=== PATIENT | male | born 1980 | race Caucasian/White ===

== ENCOUNTER 2020-07-09 15:36 | Emergency (ER) | payer OTHER, SELFPAY ==
[2020-07-09 15:48] VITALS: BP 124/73; PULSE 73; RESP 20; TEMP 36.6; O2SAT 100
--- NOTE | 2020-07-09 15:56 | ED.SKABFB ---
HPI - Skin/Abscess/Foreign Bdy General Chief complaint: Skin/Abscess/Foreign Body Stated complaint: Hives Source: patient Mode of arrival: ambulatory Limitations: no limitations History of Present Illness HPI narrative: Patient is a 39-year-old male who presents complaining of intermittent hives for the past 2 weeks. He denies changes of soap, detergent or lotions. He denies taking any new medications or eating any new foods in this period of time. He reports taking Benadryl with limited relief, he also reports taking Pepcid. He denies pain but reports itching and irritation. He reports having similar episodes in the past that have been aided by use of steroids. Patient requesting corticosteroids for treatment at this time. MD complaint: rash Related Data Home Medications Medication Instructions Recorded Confirmed Daily Multivitamin 09/22/19 Allergies Allergy/AdvReac Type Severity Reaction Status Date / Time No Known Allergies Allergy Unverified 04/14/18 08:22 Review of Systems Review of Systems: Narrative: CONSTITUTIONAL: Denies fever, chills, or sweats. EYES: Denies visual changes, redness, or discharge. ENT: Denies rhinorrhea, congestion, sore throat, or otalgia. CARDIOVASCULAR: Denies chest pain, palpitations, or edema. RESPIRATORY: Denies cough or dyspnea. GASTROINTESTINAL: Denies abdominal pain, nausea, vomiting, or diarrhea. GENITOURINARY: Denies dysuria or hematuria. SKIN: Reports intermittent hives over the past 2-3 weeks MUSCULOSKELETAL: Denies back pain, joint pain, or myalgia. NEUROLOGIC: Denies headache, numbness, dizziness, or weakness. PSYCHIATRIC: Denies anxiety or depression. [facility]LY [facility] Social History Social History (Updated 07/09/20 @ 16:01 by DIANA Crawley) Smoking status: Never smoker Alcohol intake: never Substance use: never Living arrangements: with family Occupation/Education: occupation Gender identity (if verbalized by the patient): Male Exam Narrative: Exam Narrative: GENERAL: Well-appearing, well-nourished, and in no acute distress. HEAD: Normocephalic, atraumatic. EYES: EOMI. No redness or drainage. ENT: Mucous membranes pink and moist. CHEST: No respiratory distress. Clear to auscultation. HEART: Regular rate and rhythm. No murmur appreciated. Normal peripheral pulses. EXTREMITIES: Normal range of motion. No edema. SKIN:Warm and dry, multiple raised erythematous wheals noted on back and abdomen NEURO: No focal deficits. Alert and oriented x3. Gait steady. PSYCH: Normal affect. No signs of depression or anxiety. Course Vital Signs Vital signs: Vital Signs Temperature 36.6 C 07/09/20 15:48 Pulse Rate 73 07/09/20 15:48 Respiratory Rate 20 07/09/20 15:48 Blood Pressure 124/73 07/09/20 15:48 Pulse Oximetry 100 07/09/20 15:48 Temperature 36.6 C 07/09/20 15:48 Pulse Rate 73 07/09/20 15:48 Respiratory Rate 07/09/20 15:48 Blood Pressure 124/73 07/09/20 15:48 Pulse Oximetry 100 07/09/20 15:48 Reviewed MDM - Skin/Abscess/Foreign Bdy MDM Narrative Medical decision making narrative: Patient has unknown source of urticaria, discussed using Benadryl and famotidine, which patient reports using at home. Patient to be started on corticosteroids at this time. Patient encouraged to see supervisor cytogenetic laboratory in the future. Patient is stable for discharge to home with outpatient follow-up as needed. Critical Care Time Critical Care Time Critical Care Time: No Discharge Plan Discharge Clinical Impression: Urticaria Patient Disposition: Home, Self-Care Condition: Stable Additional Instructions: Continue taking Benadryl as needed. Start taking prednisone in the a.m. Follow-up with dermatology as needed. Prescriptions: New prednisone 20 mg tablet 40 mg PO DAILY 5 Days Qty: 10 RF: 0 No Action Daily Multivitamin RF: 0 Follow-up/Referrals: Cody,Krishan Wiggins MD [Primary Care Provider] -
== END 2020-07-09 16:10 | disposition home or self-care (01) ==
PROVIDERS: Emergency Provider Nurse Practitioner; PCP Internal Medicine
DX: L50.9 Urticaria, unspecified (principal)
CPT/HCPCS: 99213; G0463

== ENCOUNTER 2020-09-20 12:35 | Emergency (ER) | payer OTHER, SELFPAY ==
[2020-09-20 12:40] VITALS: BP 140/82; PULSE 80; RESP 16; TEMP 36.7; O2SAT 100
--- NOTE | 2020-09-20 12:55 | ED.GENADULT ---
HPI - General Adult General Chief complaint: Skin/Abscess/Foreign Body Stated complaint: rash Time Seen by Provider: 09/20/20 12:55 Source: patient and RN notes reviewed Mode of arrival: ambulatory Limitations: no limitations History of Present Illness HPI narrative: 40-year-old male presents with complaints of intermittent diffused, itching, red, hives to abdomen and groin for the past 7 days. Reji reports a history of similar episodes since 2004, last being July 2020. Pepcid and Benadryl (last on 09/19/20 at bedtime) with relief, hives return within 24 hours or less. Unknown irritation. Denies new changes in personal hygiene products or laundry detergent. No new foods or medications. No swelling, burning, bleeding, or drainage. Denies fever, chills, headaches, weakness, fatigue, myalgia, facial swelling, or tongue swelling. Denies chest pain or dyspnea. Tolerating po intake well. The patient reports he have not been diagnosed with COVID-19. The patient reports he is not waiting for the results of a COVID-19 lab test. Reji reports being tested on September 17, 2020 with a NEGATIVE result. The patient reports he do not have a new or worsening cough or shortness of breath. The patient reports he do not have any rhinorrhea, congestion, loss of taste, sore throat, nausea, vomiting, abdominal pain, and diarrhea. Denies recent traveling. Denies concerns for COVID-19 or exposures been home with limited outdoor exposure except for essential household needs, work, and return home. At this time, patient is not suspected of having COVID-19. Some parts of this dictation were generated by voice recognition software and may contain typographical and/or grammatical inaccuracies. Related Data Home Medications Medication Instructions Recorded Confirmed Daily Multivitamin 1 tab-cap PO DAILY 09/22/19 09/20/20 Allergies Allergy/AdvReac Type Severity Reaction Status Date / Time No Known Allergies Allergy Verified 09/20/20 12:46 Review of Systems Review of Systems: Narrative: CONSTITUTIONAL: Denies fever, chills, sweats. EYES: Denies visual changes, redness, discharge. ENT: Denies rhinorrhea, congestion, sore throat, otalgia. CARDIOVASCULAR: Denies chest pain, palpitations, edema. RESPIRATORY: Denies dyspnea, wheezing, cough. GASTROINTESTINAL: Denies abdominal pain, nausea, vomiting, diarrhea. GENITOURINARY: Denies dysuria, hematuria, abnormal discharge SKIN: Complains of intermittent diffused itching, red, hives to abdomen and groin. Denies drainage. MUSCULOSKELETAL: Denies acute back pain, joint pain, or myalgia. NEUROLOGIC: Denies numbness or focal weakness. PSYCHIATRIC: Denies anxiety or depression. All other systems reviewed & are unremarkable except as noted in HPI and below. [facility] Past Medical History Medical History (Updated 09/20/20 @ 13:10 by DIANA Campos) Elbow fracture, left Hernia Left inguinal Surgical History Surgical History (Updated 09/20/20 @ 13:06 by DIANA Campos) History of elbow surgery Left ORIF History of hernia surgery Left inguinal hernia repair History of nasal septoplasty Family History Family History (Updated 09/20/20 @ 13:08 by DIANA Campos) Father Chronic pain Mother Hypertension Social History Social History (Updated 09/20/20 @ 13:09 by DIANA Campos) Smoking status: Never smoker Tobacco type: cigarettes Second hand tobacco smoke exposure: No Alcohol intake: never Substance use: never Living arrangements: with family Additional living arrangements comments: Spouse and kids Occupation/Education: occupation Gender identity (if verbalized by the patient): Male Sexual Orientation (if Verbalized by the Patient): Straight or Heterosexual Comments At time of signature, agree with nurse past medical, surgical, social, and family history. There is relevant patient's past medical history pertinent to the
== END 2020-09-20 13:19 | disposition home or self-care (01) ==
PROVIDERS: Emergency Provider Nurse Practitioner Family; PCP Internal Medicine
DX: L50.9 Urticaria, unspecified (principal)
CPT/HCPCS: 99213; G0463

== ENCOUNTER 2022-01-12 17:27 | Inpatient (IN) | payer OTHER, SELFPAY ==
--- NOTE | ~2022-01-12 | XR_ITS ---
EXAMINATION: XR abdomen/kub 1V DATE: 01/16/2022 05:24 INDICATION: Small bowel obstruction TECHNIQUE: A supine view of the abdomen on 2 radiographs was obtained. COMPARISON: 01/15/2022 FINDINGS: Persistent mildly dilated loop of a gas-filled small bowel in the left abdomen. Minimal amount of gas scattered throughout the colon and within a few partially decompressed loops of small bowel in the r ight abdomen. No pneumatosis. IMPRESSION: 1. Persistent mildly dilated loop of small bowel in the left abdomen most likely postoperative ileus with differential including partial small bowel obstruction. Reviewed, dictated and finalized at location A. IMPRESSION: 1. Persistent mildly dilated loop of small bowel in the left abdomen most likel y postoperative ileus with differential including partial small bowel obstructi on.
--- NOTE | ~2022-01-12 | XR_ITS ---
EXAMINATION: XR abdomen/kub 1V DATE: 01/14/2022 11:45 INDICATION: Nausea. Abdominal distention. TECHNIQUE: A supine view of the abdomen on 2 radiographs was obtained. COMPARISON: CT abdomen and pelvis 01/12/2022 FINDINGS: There are multiple dilated loops of small bowel. The colon is decompressed. IMPRESSION: 1. Dilated small bowel, most likely adynamic ileus. Reviewed, dictated and finalized at location A. N SAW MECHANIC
--- NOTE | ~2022-01-12 | CT_ITS ---
EXAMINATION: CT abdomen pelvis w con DATE: 01/12/2022 18:59 INDICATION: Diffuse abdominal pain TECHNIQUE: Computed tomography (CT) of the abdomen and pelvis was performed with 100 mL Omnipaque-350 intravenous contrast. Automated exposure control and iterative reconstruction technique were employe d. The dose-length product was 690.48 mGy-cm. COMPARISON: None FINDINGS: Lung bases are clear. Heart size is normal. No pericardial or pleural effusion. Diffuse hepatic steat osis with focal sparing along the gallbladder fossa. Gallbladder, spleen, pancreas, bilateral adrenal glands and left kidney are normal. 1.4 similar cyst at the lower pole of the right kidney. Prominent inflammatory stranding surrounding the dilated fluid-filled appendix which measures up to 1.6 simila r in diameter with obstructing appendicolith at the base of the appendix. Many of the bowels are unre markable. Bladder is normal. No abscess or free intraperitoneal gas or fluid. No pathologically enlar ged abdominal or pelvic lymphadenopathy. Straightening of the thoracic and lumbar spine. Moderate dis c height loss with mild degenerative endplate changes at L5-S1. Bone island at the right femoral head . IMPRESSION: 1. Acute appendicitis. Dr. Rouse discussed these findings with Dr. Hastings at 7:02 PM. Reviewed, dictated and finalized at location A. S PULLER IMPRESSION: 1. Acute appendicitis. Dr. Rouse discussed these findings with Dr. Venkata urena t 7:02 PM.
--- NOTE | ~2022-01-12 | XR_ITS ---
EXAMINATION: XR abdomen/kub 1V DATE: 01/15/2022 05:30 INDICATION: Small bowel obstruction. TECHNIQUE: A supine view of the abdomen on 2 radiographs was obtained. COMPARISON: CT abdomen and pelvis 01/12/2022, abdomen radiographs 01/14/2022 FINDINGS: There are multiple dilated loops of small bowel. The colon is compressed. IMPRESSION: 1. Persistently dilated small bowel, most likely adynamic ileus. Reviewed, dictated and finalized at location A.
[2022-01-12 17:37] VITALS: BP 134/76; PULSE 102; RESP 18; TEMP 37.1; O2SAT 98
--- NOTE | 2022-01-12 18:01 | ED.ABDPAIN ---
HPI - Abdominal Pain General Chief Complaint: Abdominal Pain Stated Complaint: abdominal pain Time Seen by Provider: 01/12/22 17:49 Source: patient Mode of arrival: ambulatory Limitations: no limitations History of Present Illness HPI narrative: Patient is a 41-year-old male complaining of abdominal pain, diffuse, 8 out of 10, sharp, nonradiating accompanied by nausea and subjective fever started yesterday. Patient states that he had 2 bouts of loose watery stools nonbloody today. Patient denies any chest pain, shortness of breath, vomiting, or urinary symptoms. Related Data Home Medications Medication Instructions Recorded Confirmed Daily Multivitamin 1 tab-cap PO DAILY 09/22/19 09/20/20 Allergies Allergy/AdvReac Type Severity Reaction Status Date / Time No Known Allergies Allergy Verified 01/12/22 17:56 Review of Systems Review of Systems: All systems reviewed & are unremarkable except as noted in HPI and below Constitutional: Constitutional: Denies body ache(s), Denies chills, Denies excessive sweating, Denies fatigue, Denies headache(s), Denies lethargy, Denies malaise, Denies weakness and Denies weight loss Eyes: Eyes: Denies blurry vision, Denies change in vision and Denies loss of vision ENT: Denies dizziness, Denies ear discharge, Denies headache(s), Denies lip swelling, Denies epistaxis, Denies nasal congestion, Denies neck pain, Denies throat swelling and Denies tongue swelling Cardiovascular: Cardiovascular: Denies chest pain, Denies chest pain at rest, Denies chest pain with activity, Denies diaphoresis, Denies rapid heart rate, Denies edema, Denies irregular heart rhythm, Denies lightheadedness, Denies palpitations, Denies dyspnea and Denies dyspnea on exertion Respiratory: Respiratory: Denies chest congestion, Denies cough, Denies hemoptysis, Denies dyspnea and Denies dyspnea on exertion Gastrointestinal: Gastrointestinal: Denies melena, Denies hematochezia, Denies diarrhea, Denies vomiting and Denies hematemesis Musculoskeletal: Musculoskeletal: Denies abnormal gait, Denies deformity, Denies joint swelling, Denies limited range of motion, Denies neck pain and Denies numbness Neurologic: Denies Abnormal speech present, Denies abnormal gait, Denies confusion, Denies dizziness, Denies headache(s), Denies focal weakness, Denies loss of vision, Denies numbness, Denies Other visual disturbances, Denies Sensory deficit (Neuro) and Denies weakness Psychiatric: Psychiatric: Denies confusion, Denies depression, Denies auditory hallucinations, Denies homicidal ideation and Denies suicidal ideation Endocrine: Endocrine: Denies cold intolerance, Denies excessive sweating, Denies fatigue, Denies heat intolerance and Denies palpitations Hematologic/Lymphatic: Hematologic/Lymphatic: Denies easy bleeding and Denies easy bruising Allergic/Immunologic: Allergic/Immunologic: Denies lip swelling, Denies throat swelling and Denies tongue swelling PMFSH Past Medical History Medical History Elbow fracture, left Hernia Left inguinal Surgical History Surgical History History of elbow surgery Left ORIF History of hernia surgery Left inguinal hernia repair History of nasal septoplasty Family History Family History Father Chronic pain Mother Hypertension Social History Social History Smoking status: Never smoker Tobacco type: cigarettes Second hand tobacco smoke exposure: No Alcohol intake: never Substance use: never Additional living arrangements comments: Spouse and kids Gender identity (if verbalized by the patient): Male Sexual Orientation (if Verbalized by the Patient): Straight or Heterosexual Exam Const: General: cooperative, healthy appearing, comfortable, no ac
[2022-01-12] MEDS: MORPHINE SULFATE (*CRX) 2 MG/ML INJ (18:31)
[2022-01-12] MEDS: ONDANSETRON INJ 4 MG/2 ML VIAL (18:31)
[2022-01-12 18:38] LABS: Alanine Aminotransferase 94 U/L (4-50); Albumin Level 5.2 g/dL (3.5-5.1); Alkaline Phosphatase 70 U/L (38-126); Anion Gap 13 mmol/L (8-16); Aspartate Amino Transferase 43 U/L (17-59); Bilirubin,Total 1.5 mg/dL (0.2-1.3); Blood Urea Nitrogen 10 mg/dL (9-20); Calcium 9.9 mg/dL (8.4-10.2); Carbon Dioxide 27 mmol/L (22-30); Chloride 97 mmol/L (98-107); Estimated CRCL calculation 79 ml/min; Estimated Glomerular Filt Rate > 60; Glucose 126 mg/dL (65-110); Lipase 73 U/L (23-300); Potassium 3.4 mmol/L (3.4-5.0); Sodium 137 mmol/L (137-145)
[2022-01-12 18:48] LABS: Basophils Percent Auto 0.2 % (0.2-1.2); Hematocrit 45.7 % (42.0-52.0); Immature Granulocyte Absolute 0.12 K/mm3 (0.00-0.031); Immature Granulocyte Percent A 0.5 % (0-0.5); Lymphocytes Absolute Auto 1.56 K/mm3 (0.9-3.2); Lymphocytes Percent Auto 6.4 % (18.3-44.2); Mean Corpuscular Hemoglobin 31.6 pg (26-34); Mean Corpuscular Volume 90.1 fl (80-100); Mean Platelet Volume 10.2 fl (7.4-10.4); Monocytes Absolute Auto 1.7 K/mm3 (0.1-0.6); Monocytes Percent Auto 6.8 % (2.6-8.5); Neutrophils Percent Auto 86.1 % (45.5-73.1); Platelet Count Result 332 k/mm3 (150-375); Red Blood Count 5.07 M/mm3 (4.6-6.20); Red Cell Distribution Width 12.6 % (11.5-14.5); White Blood Count 24.4 K/mm3 (4.5-10.0)
[2022-01-12 18:53] LABS: Add Urine Microscopic? YES; Appearance Urine Clear (Clear); Bilirubin Urine Negative (Negative); Blood Urine 1+ (Negative); Color Urine Yellow (Yellow); Glucose Urine UA Negative (Negative); Ketones Urine 2+ mg/dL (Negative); Leukocyte Esterase Ur Negative LEU/UL (Negative); Mucus Urine Few /lpf; Nitrate Urine Negative (Negative); Protein Urine 1+ mg/dL (Negative); Specific Grav Ur 1.026 (1.001-1.035); Urobilinogen Urine Negative mg/dL (<2.0); WBC Urine 0-3 /hpf
[2022-01-12 19:15] VITALS: BP 147/76; PULSE 98; RESP 18; O2SAT 99
--- NOTE | 2022-01-12 19:57 | PC.NURSE ---
Attempted to call [facility] to inform them of faxed SBAR. No answer and call forwarded to [facility].
[2022-01-12] MEDS: HYDROmorphone HCL INJ (*CRX) 1 MG/ML SYR IV PUSH (20:02)
[2022-01-12 20:32] VITALS: BP 127/67; PULSE 94; RESP 16; O2SAT 96
--- NOTE | 2022-01-12 20:54 | ADMGEN ---
This patient, Reji Lowry, was admitted to Medical Room 345-01. Patient/family oriented to hospital policies and general routines including ID bracelet, bed and alarms, visiting hours, pain management, procedures, bathroom and other care routines, personal items, smoking policy, room service/diet, and visiting hours. Information on how to activate the Rapid Response Team has been discussed. Patient/Family are encouraged to report perceived risks to care and to ask questions if they do not understand what they are told or what they should do.
[2022-01-12 21:24] VITALS: O2SAT 93
[2022-01-12] MEDS: LACTATED RINGERS 1,000 ML 125 ML IV CONT (21:53)
[2022-01-12 23:22] VITALS: BP 121/65; PULSE 92; RESP 18; TEMP 36.7; O2SAT 95
[2022-01-13] VITALS (18 sets, daily range): BP systolic 108–141; BP diastolic 51–78; PULSE 79–101; RESP 11–20; TEMP 35.9–39.2; O2SAT 93–100
[2022-01-13] MEDS: HYDROmorphone HCL INJ (*CRX) 1 MG/ML SYR 0.5 MG IV PUSH ×7 (02:37→23:56)
[2022-01-13] MEDS: LACTATED RINGERS 1,000 ML 125 ML IV CONT (05:15)
[2022-01-13] MEDS: LACTATED RINGERS 1,000 ML 30 ML IV CONT (10:05)
[2022-01-13] MEDS: HYDROmorphone HCL INJ (*CRX) 1 MG/ML SYR IV PUSH (10:14)
--- NOTE | 2022-01-13 10:16 | WPDANESEPPF ---
Anes - Initial Pre Proc Eval Procedure: Operation Date: 01/13/22 12:00 Proposed Procedures p Laparoscopic Appendectomy - Shweta Walton MD Date/Time: 01/13/22 10:16 Surgeon: Shweta Walton MD Pre Op Diagnosis: Acute Appendicitis Patient Data Age: 41 Gender: M Height: 1.7 m Weight: 85 kg Last Vital Signs Temp 37.5 C 01/13/22 08:44 Pulse 100 01/13/22 08:44 Resp 20 01/13/22 08:44 BP 141/71 H 01/13/22 08:44 Pulse Ox 98 01/13/22 08:44 Allergies Allergy/AdvReac Type Severity Reaction Status Date / Time No Known Allergies Allergy Verified 01/12/22 17:56 Home Medications Medication Instructions Recorded Confirmed Type Daily Multivitamin 1 tab-cap PO DAILY 09/22/19 01/12/22 History cetirizine [Zyrtec] 10 mg PO DAILY 01/12/22 01/12/22 History [id number] 1 cap PO DAILY 01/12/22 01/12/22 History Laboratory Tests 01/12/22 01/12/22 01/12/22 18:21 18:21 18:31 WBC 24.4 K/mm3 H K/mm3 (4.5-10.0) RBC 5.07 M/mm3 M/mm3 (4.6-6.20) Hgb 16.0 g/dL g/dL (14.0-18.0) Hct 45.7 % % (42.0-52.0) MCV 90.1 fl fl (80-100) MCH 31.6 pg pg (26-34) MCHC 35.0 g/dl g/dl (32-36) RDW 12.6 % % (11.5-14.5) Plt Count 332 k/mm3 k/mm3 (150-375) MPV 10.2 fl fl (7.4-10.4) Immature Gran % (Auto) 0.5 % % (0-0.5) Neut % (Auto) 86.1 % H % (45.5-73.1) Lymph % (Auto) 6.4 % L % (18.3-44.2) Roberts % (Auto) 6.8 % % (2.6-8.5) Eos % (Auto) 0.0 % % (0-4.4) Baso % (Auto) 0.2 % % (0.2-1.2) Lymph # (Auto) 1.56 K/mm3 K/mm3 (0.9-3.2) Roberts # (Auto) 1.7 K/mm3 H K/mm3 (0.1-0.6) Eos # (Auto) 0.0 K/mm3 K/mm3 (0-0.3) Baso # (Auto) 0.0 K/mm3 K/mm3 (0.0-0.1) Abs Immat Gran (auto) 0.12 K/mm3 H K/mm3 (0.00-0.031) Absolute Neuts (auto) 21.0 K/mm3 H K/mm3 (1.3-6.7) Absolute Nucleated RBC 0.0 K/mm3 K/mm3 (0.0-0.012) Nucleated RBC % 0.0 % % (0.0-0.2) Sodium 137 mmol/L mmol/L (137-145) Potassium 3.4 mmol/L mmol/L (3.4-5.0) Chloride 97 mmol/L L mmol/L (98-107) Carbon Dioxide 27 mmol/L mmol/L (22-30) Anion Gap 13 mmol/L mmol/L (8-16) BUN 10 mg/dL mg/dL (9-20) Creatinine 1.00 mg/dL mg/dL (0.7-1.3) Estim Creat Clear Calc 79 ml/min ml/min Estimated GFR > 60 (59 - ) Glucose 126 mg/dL H mg/dL (65-110) Calcium 9.9 mg/dL mg/dL (8.4-10.2) Total Bilirubin 1.5 mg/dL H mg/dL (0.2-1.3) AST 43 U/L U/L (17-59) ALT 94 U/L H U/L (4-50) Alkaline Phosphatase 70 U/L U/L (38-126) Total Protein 9.0 g/dL H g/dL (6.3-8.2) Albumin 5.2 g/dL H g/dL (3.5-5.1) Lipase 73 U/L U/L (23-300) Urine Color Yellow (Yellow) Urine Appearance Clear (Clear) Urine pH 6.0 (5.0-9.0) Ur Specific [place] 1.026 (1.001-1.035) Urine Protein 1+ mg/dL H mg/dL (Negative) Urine Glucose (UA) Negative mg/dL mg/dL (Negative) Urine Ketones 2+ mg/dL H mg/dL (Negative) Ur Blood (Man) 1+ H (Negative) Urine Nitrate Negative (Negative) Urine Bilirubin Negative (Negative) Urine Urobilinogen Negative mg/dL mg/dL (<2.0) Leukocyte Esterase Rfl Negative DHRUV/UL DHRUV/UL (Negative) Urine RBC 6-10 /hpf H /hpf (0-2) Urine WBC 0-3 /hpf /hpf Urine Mucus Few /lpf H /lpf Patient hx anesthesia problems: post op nausea/vomiting and other (motion sickness) Family hx anesthesia problems: none Results Review: All pre-operative results and documents have been reviewed as part of the pre-operative evaluation. PMFSH Past Medical History Medi
[2022-01-13] MEDS: SCOPOLAMINE 1.5 MG PATCH TRANSDERM (10:21)
--- NOTE | 2022-01-13 10:33 | PM.IMHP ---
H&P: HPI History of Present Illness Date/Time: 01/13/22 10:33 Pt is a 41 y/o M presenting to ED c/o severe lower abd pain, R>L. Pt reports pain started Wed night and was more diffuse in nature. Pt reports pain now more localized in RLQ and radiates to back. Pt also reports anorexia, bloating, nausea. Pt reports subjective fevers, chills. Pt denies any previous episodes. Pt had LIH repair approx 8 yrs ago. Chief Complaint: acute appendicitis Review of Systems Constitutional: Constitutional: Reports anorexia, Reports chills, Reports excessive sweating, Reports fatigue, Reports fever(s), Reports lethargy, Reports malaise, Reports poor appetite, Reports weakness, Denies weight gain and Denies weight loss Eyes: Eyes: Reports no additional eye complaints ENT: Reports system reviewed and no additional complaints, except as documented Cardiovascular: Cardiovascular: Reports no additional cardiovascular complaints Respiratory: Respiratory: Reports no additional respiratory complaints Gastrointestinal: Gastrointestinal: Reports as per HPI, Reports abdominal pain, Reports bloating, Reports early satiety, Reports nausea and Denies vomiting Genitourinary: Genitourinary: Reports no additional male genitourinary complaints Musculoskeletal: Musculoskeletal: Reports no additional musculoskeletal complaints Integumentary/Breasts: Skin/Breast: Reports system reviewed and no additional complaints, except as docu Neurologic: Reports system reviewed and no additional complaints, except as documented Psychiatric: Psychiatric: Reports no additional psychiatric complaints Endocrine: Endocrine: Reports no additional endocrine complaints Hematologic/Lymphatic: Hematologic/Lymphatic: Reports no additional hematologic/lymphatic complaints Allergic/Immunologic: Allergic/Immunologic: Reports no additional allergic/immunologic complaints [facility] Past Medical History Medical History Elbow fracture, left Hernia Left inguinal Surgical History Surgical History History of elbow surgery Left ORIF History of hernia surgery Left inguinal hernia repair History of nasal septoplasty Family History Family History Father Chronic pain Mother Hypertension Social History Social History Smoking status: Never smoker Tobacco type: cigarettes Second hand tobacco smoke exposure: No Alcohol intake: never Substance use: never Additional living arrangements comments: Spouse and kids Gender identity (if verbalized by the patient): Male Sexual Orientation (if Verbalized by the Patient): Straight or Heterosexual Spiritual care concerns: No Meds Home Medications and Allergies Home Medications Medication Instructions Recorded Confirmed Type Daily Multivitamin 1 tab-cap PO DAILY 09/22/19 01/12/22 History cetirizine [Zyrtec] 10 mg PO DAILY 01/12/22 01/12/22 History [id number] 1 cap PO DAILY 01/12/22 01/12/22 History Allergies Allergy/AdvReac Type Severity Reaction Status Date / Time No Known Allergies Allergy Verified 01/12/22 17:56 Vital Signs Vital Signs - 24 hr 01/12/22 17:37 01/12/22 19:15 01/12/22 20:32 Temperature 37.1 C Pulse Rate 102 H 98 94 Respiratory Rate 18 18 16 Blood Pressure 134/76 147/76 H 127/67 Pulse Oximetry 98 99 96 01/12/22 21:24 01/12/22 23:22 01/13/22 06:34 Temperature 36.7 C 37.7 C H Pulse Rate 92 101 H Respiratory Rate 18 18 Blood Pressure 121/65 116/56 L Pulse Oximetry 93 95 99 01/13/22 08:44 Temperature 37.5 C Pulse Rate 100 Respiratory Rate 20 Blood Pressure 141/71 H Pulse Oximetry 98 Exam Const: General: cooperative, comfortable, acute distress moderate, diaphoretic, ill appearing and uncomfortable Nutritional Appearance: overw
--- NOTE | 2022-01-13 10:38 | WPDHPUPDATE1 ---
History and Physical Update Update Date/Time: 01/13/22 10:38 History and Physical has been reviewed, including an updated exam of the patient. There are NO changes in the patient's condition. Risks, benefits, and alternatives have been discussed and questions answered. Patient agrees to proceed with procedure.
--- NOTE | 2022-01-13 10:39 | WPDHPUPDATE1 ---
History and Physical Update Update Date/Time: 01/13/22 10:39 History and Physical has been reviewed, including an updated exam of the patient. There are NO changes in the patient's condition. Risks, benefits, and alternatives have been discussed and questions answered. Patient agrees to proceed with procedure.
[2022-01-13] MEDS: BUPIVACAINE HCL 0.5% PF 30 ML VIAL INFILTRATE (11:07)
--- NOTE | 2022-01-13 12:14 | P.OP_ITS ---
Procedure Note - Detailed Date of Procedure 01/13/22 Pre-op Diagnosis Acute Appendicitis Post-op Diagnosis Other ( acute perforated appendicitis) Procedure Performed laparoscopic appendectomy Surgeon Shweta Walton MD Anesthesia General Indications 41-year-old male presenting with acute appendicitis Findings acute appendicitis with perforation near the base of the appendix noted fecalith Description of Procedure The patient was taken to the operating room and placed in the supine position. After adequate induction of general anesthesia, the patient was prepped and draped in the normal sterile fashion. A time-out was then done to verify the patient's identity, as well as the procedure being performed. I began by making a 5 mm incision in the infraumbilical region, through this a Veress needle was p laced in the peritoneal cavity. CO2 gas was then insufflated and after adequate pneumoperitoneum was achieved the Veress needle was removed. Then placed a 5 mm Optiview trocar under direct visualization into the peritoneal cavity. I then insufflated through this trocar site and the endoscope was placed into the trocar. Under direct visualization, placed 2 further 5 mm suprapubic port as well as an additional 12 mm port in the left lower abdomen. At this point identified the cecum, I retracted the cecum both medially and superiorly allowing me to expose the appendix. The appendix was noted to be very dilated and inflamed. The appendix was noted to be very adherent to the right lateral sidewall as well as the ileum. I was able to bluntly dissect the appendix from these adhesions. I then was able to locate the base of the appendix with the cecum. It was noted at this point, there was a perforation near the base of the appendix. Near the area of perforation was noted to be a large fecalith within the lumen of the appendix. No abscess cavity was noted. I created a window with the [place] dissector between the appendix itself and the mesoappendix. I then transected the mesoappendix with a white vascular staple load. The Endo- KASANDRA was then reloaded with a blue staple load and I transected the base of the appendix. Of note, the appendiceal staple line was noted to be intact across the cecum. Once the specimen was completely detached, an endo-pouch was placed into the 12 mm port site and the specimen was removed through the endo-pouch. The appendiceal specimen will be sent to pathology for further review. I then copiously irrigated the right lower quadrant. Hemostasis was noted at both staple lines no other pathology was seen in this area. I then moved the camera to the suprapubic port to check our its port of entry. No iatrogenic injury or other pathology was noted in the upper abdomen. I then closed the 12 mm port site with a Chapito code and 0 Vicryl suture under direct visualization. At this point, the abdomen was desufflated and all ports were removed. All port sites were closed with 4 Monocryl subcuticular suture. Dermabond was placed on all wounds. The patient tolerated the procedure well and was extubated in the operating room postop. He will be sent to the recovery room in stable condition. Estimated Blood Loss 10 Urine Output 0 Drains No Packing No Pathology Yes Complications No immediate complications Condition Stable Disposition PACU
[2022-01-13] MEDS: ACETAMINOPHEN 325 MG TABLET PO (18:54)
[2022-01-14] VITALS (11 sets, daily range): BP systolic 113–128; BP diastolic 53–81; PULSE 73–93; RESP 16–20; TEMP 36.2–38.3; O2SAT 94–100
[2022-01-14] MEDS: ACETAMINOPHEN 325 MG TABLET PO (01:00)
[2022-01-14] MEDS: LORATADINE 10 MG TABLET PO (07:59)
[2022-01-14] MEDS: MULTIVITAMINS THERAPEUTIC TAB (*BKC) 1 TABLET PO (07:59)
[2022-01-14 08:44] LABS: Hematocrit 41.2 % (42.0-52.0); Hemoglobin 14.2 g/dL (14.0-18.0); Mean Corpuscular HGB Conc 34.5 g/dl (32-36); Mean Corpuscular Hemoglobin 32.2 pg (26-34); Mean Corpuscular Volume 93.4 fl (80-100); Mean Platelet Volume 10.1 fl (7.4-10.4); Platelet Count Result 249 k/mm3 (150-375); Red Blood Count 4.41 M/mm3 (4.6-6.20); Red Cell Distribution Width 12.9 % (11.5-14.5); White Blood Count 17.2 K/mm3 (4.5-10.0)
[2022-01-14 08:55] LABS: Anion Gap 6 mmol/L (8-16); Blood Urea Nitrogen 14 mg/dL (9-20); Calcium 8.7 mg/dL (8.4-10.2); Carbon Dioxide 33 mmol/L (22-30); Chloride 96 mmol/L (98-107); Estimated CRCL calculation 67 ml/min; Estimated Glomerular Filt Rate > 60; Glucose 129 mg/dL (65-110); Potassium 3.6 mmol/L (3.4-5.0); Sodium 135 mmol/L (137-145)
--- NOTE | 2022-01-14 09:43 | PM.PNGS ---
Progress Note: A&P Assessment and Plan (1) Ruptured appendicitis: Code(s): K35.32 - Acute appendicitis with perforation and localized peritonitis, without abscess Status: Acute Assessment and Plan: febrile to 39.2 last night. Showing signs of adynamic ileus after ruptured appendicitis. Not unusual. Will decrease oral intake to full liquids. Increase ambulation. Hold any unnecessary oral medications and continue IV Zosyn antibiotics. Follow serial abdominal exam with labs and KUB. Will need to have inpatient care. Subjective Subjective Date/Time Seen: 01/14/22 09:43 Post Op day: 2 Patient reports: pain is less, no flatus, no bowel movement, fever ( 39.2 about 7:00 p.m. last night) and other ( feels bloated, distended with poor appetite) Review of Systems Review of Systems: All systems reviewed & are unremarkable except as noted in HPI and below Constitutional: Constitutional: Reports as per HPI, Reports fatigue, Reports fever(s), Denies headache(s) and Reports poor appetite Cardiovascular: Cardiovascular: Denies chest pain and Denies dyspnea Respiratory: Respiratory: Denies cough and Denies dyspnea Gastrointestinal: Gastrointestinal: Reports as per HPI, Reports bloating, Reports early satiety, Denies heartburn and Denies vomiting Neurologic: Denies confusion and Denies headache(s) Psychiatric: Psychiatric: Denies confusion Exam Const: General: comfortable and no acute distress; No confusion Orientation/consciousness: patient oriented x3 and No confusion GI: Inspection: distended and incision ( incisions dry and healing well) GI Palp: Yes Soft to palpation, Yes Tenderness to palpation present (GI) ( appropriate postoperative tenderness), No Guarding due to palpation present (GI), No Palpable mass present, No Ascites present and No Rebound tenderness present Percussion: No Fluid wave present and Yes tympanic to percussion Auscultation: absent bowel sounds Extrem: General: no calf tenderness and no edema Psych: Affect: normal affect Insight: Good insight present (Psych) Judgement: Good judgement present (Psych) Objective Data Vital Signs Vital Signs: Vital Signs - 24 hr 01/13/22 11:34 01/13/22 11:45 01/13/22 12:00 Temperature 36.7 C Pulse Rate 81 80 80 Respiratory Rate 11 L 16 16 Blood Pressure 133/78 123/76 123/75 Pulse Oximetry 100 100 100 01/13/22 12:15 01/13/22 12:30 01/13/22 12:45 Temperature Pulse Rate 85 90 90 Respiratory Rate 19 14 16 Blood Pressure 115/53 L 109/51 L 110/51 L Pulse Oximetry 93 94 94 01/13/22 13:00 01/13/22 13:15 01/13/22 13:50 Temperature 37.0 C Pulse Rate 84 82 87 Respiratory Rate 12 13 18 Blood Pressure 108/67 116/63 130/69 Pulse Oximetry 95 96 98 01/13/22 14:12 01/13/22 14:47 01/13/22 15:56 Temperature 36.1 C L 35.9 C L 36.6 C Pulse Rate 80 79 83 Respiratory Rate 18 18 18 Blood Pressure 129/69 125/77 128/77 Pulse Oximetry 98 99 99 01/13/22 18:48 01/13/22 18:54 01/13/22 19:54 Temperature 39.2 C H 39.2 C H 37.8 C H Pulse Rate Respiratory Rate Blood Pressure Pulse Oximetry 01/14/22 00:40 01/14/22 01:00 01/14/22 02:00 Temperature 38.3 C H 38.3 C H 37.8 C H Pulse Rate Respiratory Rate Blood Pressure Pulse Oximetry 01/14/22 06:15 01/14/22 07:46 Temperature 36.8 C 36.2 C L Pulse Rate 81 Respiratory Rate 20 Blood Pressure 128/68 Pulse Oximetry 100 Intake/Output Intake/Output: Intake & Output 01/11/22 01/12/22 01/13/22 01/14/22 23:59 23:59 23:59 23:59 Intake Total 50 1300 400 Output Total 900 400 Balance 50 400 0 Meds/Results Medications: Active Medications Generic Name Dose Route Start Last Admin Trade Name Freq PRN Reason Stop Dose Admin Hydromorphone HCl 0.5 mg 01/13/22 18:58 01/13/22 23:56 Hydromorphone Hcl Inj (*Crx) 1 Mg/Ml Syr IV PUSH 0.5 mg Q2H PRN Administration Pain Rated 7-10 Piperacillin/Tazobactam/Dextrose 3.375 gm in 50 mls @ 1
[2022-01-14] MEDS: LACTATED RINGERS 1,000 ML 80 ML IV CONT (10:43)
[2022-01-14] MEDS: ENOXAPARIN 40 MG/0.4 ML SYRINGE SUB-Q (10:43)
[2022-01-14] MEDS: ACETAMINOPHEN 500 MG TABLET PO (17:52)
[2022-01-14] MEDS: FAMOTIDINE 20 MG/2 ML VIAL IV PUSH (20:32)
[2022-01-15] VITALS (8 sets, daily range): BP systolic 110–123; BP diastolic 62–70; PULSE 69–82; RESP 16–18; TEMP 37.1–37.6; O2SAT 98–100
[2022-01-15] MEDS: LACTATED RINGERS 1,000 ML 80 ML IV CONT (00:32)
--- NOTE | 2022-01-15 03:23 | PC.NURSE ---
Daylight Savings Time For Daylight Savings Time Ending in the Fall - Clocks are moved back. For Daylight Savings Time Beginning in the Spring - Clocks are moved ahead. For [facility], the time of change occurs at 0200 hrs. Time is taken from the manager endoscopy. This entry on the patient's chart recognizes the change in time reflected during documentation. Example: 2 entries for vital signs may be charted for 0200 hrs.
[2022-01-15 05:59] LABS: Hematocrit 38.8 % (42.0-52.0); Hemoglobin 13.1 g/dL (14.0-18.0); Mean Corpuscular HGB Conc 33.8 g/dl (32-36); Mean Corpuscular Hemoglobin 31.6 pg (26-34); Mean Corpuscular Volume 93.7 fl (80-100); Mean Platelet Volume 10.5 fl (7.4-10.4); Platelet Count Result 260 k/mm3 (150-375); Red Blood Count 4.14 M/mm3 (4.6-6.20); Red Cell Distribution Width 12.9 % (11.5-14.5); White Blood Count 12.7 K/mm3 (4.5-10.0)
[2022-01-15 06:13] LABS: Anion Gap 8 mmol/L (8-16); Blood Urea Nitrogen 12 mg/dL (9-20); Calcium 8.3 mg/dL (8.4-10.2); Carbon Dioxide 29 mmol/L (22-30); Chloride 99 mmol/L (98-107); Estimated CRCL calculation 79 ml/min; Estimated Glomerular Filt Rate > 60; Glucose 121 mg/dL (65-110); Potassium 3.2 mmol/L (3.4-5.0); Sodium 136 mmol/L (137-145)
[2022-01-15] MEDS: ENOXAPARIN 40 MG/0.4 ML SYRINGE SUB-Q (08:20)
[2022-01-15] MEDS: FAMOTIDINE 20 MG/2 ML VIAL IV PUSH (08:20)
[2022-01-15] MEDS: LORATADINE 10 MG TABLET PO (08:20)
--- NOTE | 2022-01-15 10:56 | PM.PNGS ---
Progress Note: A&P Assessment and Plan (1) Ruptured appendicitis: Code(s): K35.32 - Acute appendicitis with perforation and localized peritonitis, without abscess Status: Acute Assessment and Plan: bowel function returning. Will advance to soft diet. Continue to ambulate and be out of bed. Will saline lock IV fluids. Recheck plain film labs again tomorrow. Possibly home tomorrow. (2) Hypokalemia: Code(s): E87.6 - Hypokalemia Status: Acute Assessment and Plan: Supplement potassium and recheck again tomorrow morning. Subjective Subjective Date/Time Seen: 01/15/22 10:56 Post Op day: 3 Patient reports: feels better, pain is less, tolerating liquids well and afebrile Interval history: Phys not feel near is distended. Tolerating liquids well. Would like to try some solid food. Has been walking yesterday and this morning. Feels much better than yesterday. Review of Systems Review of Systems: All systems reviewed & are unremarkable except as noted in HPI and below Constitutional: Constitutional: Reports as per HPI, Denies body ache(s), Denies chills, Denies fever(s) and Reports increased appetite Cardiovascular: Cardiovascular: Denies chest pain and Denies dyspnea Respiratory: Respiratory: Denies cough and Denies dyspnea Gastrointestinal: Gastrointestinal: Reports as per HPI, Reports abdominal pain ( Minimal incisional pain), Denies early satiety, Denies heartburn, Denies nausea and Denies vomiting Exam Const: General: comfortable and no acute distress; No confusion Orientation/consciousness: patient oriented x3 and No confusion GI: Inspection: incision ( incisions healing well) and obesity GI Palp: Yes Soft to palpation ( protuberant abdomen), Yes Tenderness to palpation present (GI) ( minimal incisional tenderness), No Guarding due to palpation present (GI) and No Rebound tenderness present Auscultation: normal bowel sounds Neuro: General: patient oriented x3, no focal motor deficits and No confusion Extrem: General: no calf tenderness and no edema Psych: Affect: normal affect Insight: Good insight present (Psych) Judgement: Good judgement present (Psych) Objective Data Vital Signs Vital Signs: Vital Signs - 24 hr 01/14/22 12:00 01/14/22 15:57 01/14/22 17:52 Temperature 36.2 C L 37.4 C 38.1 C H Pulse Rate 90 93 Respiratory Rate 20 20 Blood Pressure 124/81 123/64 Pulse Oximetry 100 99 01/14/22 18:48 01/14/22 19:34 01/14/22 23:31 Temperature 37.4 C 37.1 C 37.2 C Pulse Rate 73 76 Respiratory Rate 16 17 Blood Pressure 115/62 113/53 L Pulse Oximetry 94 98 01/15/22 04:00 01/15/22 07:56 Temperature 37.3 C 37.3 C Pulse Rate 77 78 Respiratory Rate 17 16 Blood Pressure 110/62 123/67 Pulse Oximetry 99 98 Intake/Output Intake/Output: Intake & Output 01/12/22 01/13/22 01/14/22 01/16/22 23:59 23:59 23:59 00:59 Intake Total 50 1300 1090 1400 Output Total 900 400 350 Balance 50 119 [id number] Meds/Results Medications: Active Medications Generic Name Dose Route Start Last Admin Trade Name Freq PRN Reason Stop Dose Admin Acetaminophen 500 mg 01/14/22 09:39 01/14/22 17:52 Acetaminophen 500 Mg Tablet PO 500 mg Q6H PRN Administration Mild Pain (1-3) or Fever Hydrocodone Bitart/Acetaminophen 1 tab 01/15/22 10:53 Hydrocodone/Acetaminophen (*Crx) 5-325 Mg Tablet PO Q6H PRN Pain Rated 4-6 Enoxaparin Sodium 40 mg 01/15/22 09:00 01/15/22 08:20 Enoxaparin 40 Mg/0.4 Ml Syringe SUB-Q 40 mg DAILY JAQUELIN Administration Famotidine 20 mg 01/15/22 21:00 Famotidine 20 Mg Tablet PO Q12HR JAQUELIN Piperacillin/Tazobactam/Dextrose 3.375 gm in 50 mls @ 100 mls/hr 01/13/22 18:00 01/15/22 06:37 Zosyn 3.375 Gm/D5w 50ml Pm IVPB Infused Q6H JAQUELIN Infusion Loratadine 10 mg 01/14/22 09:00 01/15/22 08:20 Loratadine 10 Mg Tablet PO 10 mg DAILY JAQUELIN Administration Morphine Sulfate 2 mg
[2022-01-15] MEDS: POTASSIUM CHLORIDE 20 MEQ TABLET 40 MEQ PO (11:14)
[2022-01-15] MEDS: ACETAMINOPHEN 500 MG TABLET PO ×2 (15:19→23:42)
[2022-01-15] MEDS: POTASSIUM CHLORIDE 20 MEQ TABLET.ER 40 MEQ PO (16:12)
[2022-01-15] MEDS: FAMOTIDINE 20 MG TABLET PO (20:11)
[2022-01-16 04:00] VITALS: BP 122/75; PULSE 64; RESP 17; TEMP 36.9; O2SAT 99
[2022-01-16 06:06] LABS: Hematocrit 36.7 % (42.0-52.0); Hemoglobin 12.6 g/dL (14.0-18.0); Mean Corpuscular HGB Conc 34.3 g/dl (32-36); Mean Corpuscular Hemoglobin 31.6 pg (26-34); Mean Platelet Volume 10.6 fl (7.4-10.4); Platelet Count Result 251 k/mm3 (150-375); Red Blood Count 3.99 M/mm3 (4.6-6.20); Red Cell Distribution Width 13.1 % (11.5-14.5); White Blood Count 8.8 K/mm3 (4.5-10.0)
[2022-01-16 06:15] LABS: Anion Gap 9 mmol/L (8-16); Blood Urea Nitrogen 11 mg/dL (9-20); Calcium 8.3 mg/dL (8.4-10.2); Carbon Dioxide 28 mmol/L (22-30); Chloride 102 mmol/L (98-107); Estimated CRCL calculation 79 ml/min; Estimated Glomerular Filt Rate > 60; Glucose 142 mg/dL (65-110); Potassium 3.5 mmol/L (3.4-5.0); Sodium 139 mmol/L (137-145)
[2022-01-16 08:00] VITALS: PULSE 64; RESP 17; O2SAT 99
[2022-01-16] MEDS: FAMOTIDINE 20 MG TABLET PO (08:22)
[2022-01-16] MEDS: LORATADINE 10 MG TABLET PO (08:22)
[2022-01-16] MEDS: POTASSIUM CHLORIDE 20 MEQ TABLET.ER 40 MEQ PO (08:22)
[2022-01-16] MEDS: AMOXICILLIN/CLAVULANATE K 875-125 MG TAB 1 TABLET PO (08:22)
[2022-01-16] MEDS: ENOXAPARIN 40 MG/0.4 ML SYRINGE SUB-Q (08:22)
[2022-01-16 08:31] VITALS: BP 127/74; PULSE 72; RESP 14; TEMP 35.9; O2SAT 100
--- NOTE | 2022-01-16 09:26 | PM.DS ---
DS: Admitting Diagnosis Discharge Date 01/16/22 Admitting Diagnosis Acute perforated appendicitis DS: Discharge Diagnosis Discharge Diagnosis (1) Ruptured appendicitis: Code(s): K35.32 - Acute appendicitis with perforation and localized peritonitis, without abscess Status: Acute Assessment and Plan: doing well, cont routine postop care, home c po abx, analgesia, f/u 2 wks (2) Ileus, postoperative: Code(s): K91.89 - Other postprocedural complications and disorders of digestive system; K56.7 - Ileus, unspecified Status: Acute Assessment and Plan: exam benign, largely resolved, fidel soft diet, +bowel fxn DS: Summary Hospital Course Reason for hospitalization: acute perforated appendicitis Hospital Course: The patient is a 41-year-old male presenting to the emergency department complaining of severe right lower quadrant abdominal pain. Workup, including imaging, was significant for acute appendicitis. The patient was admitted to the General Surgery Service, made NPO, and started on IV antibiotics. Upon evaluation, it was decided the patient would undergo emergent appendectomy. The patient was taken to the operating room and laparoscopic appendectomy was performed, please see full operative report for details of that procedure. It was noted intraoperatively that the patient did have a perforation although no abscess. The patient was then transferred to the [facility] floor. Over the next few days, the patient did spike some fevers as well as developed a postoperative ileus. The patient was encouraged to get out of bed and was continued on IV antibiotics. We were able to slowly advance his diet and by today he was tolerating a soft diet without issue. Patient is having soft bowel movements at this time. The patient reports that he feels much better and has been up and ambulating without issue. He will be discharged home with continued p.o. antibiotics, as well as p.o. analgesia. He will follow up in 2 weeks. Status at Discharge Functional status at discharge: independent ambulation Overall status at discharge: patient is progressing back to baseline Time Spent with Patient Time attestation: Total time spent providing and/or coordinating discharge services: Time spent: Less than 30 minutes Exam Const: General: cooperative, comfortable and no acute distress Limitations: no limitations Resp: Auscultation: clear to auscultation bilaterally Cardio: Rate: regular rate Rhythm: regular rhythm GI: Inspection: normal to inspection, distended and incision GI Palp: Yes Soft to palpation, Yes Tenderness to palpation present (GI), No Guarding due to palpation present (GI) and No Rigid due to palpation DS: Data Data Completed and Pending Pending studies at discharge: Pending at discharge 01/13/22 11:03 Surgical [PTH] Routine Labs on day of discharge: Labs from last 24 hours 01/16/22 01/16/22 05:40 05:40 WBC 8.8 RBC 3.99 L Hgb 12.6 L Hct 36.7 L MCV 92.0 MCH 31.6 MCHC 34.3 RDW 13.1 Plt Count 251 MPV 10.6 H Sodium 139 Potassium 3.5 Chloride 102 Carbon Dioxide 28 Anion Gap 9 BUN 11 Creatinine 1.00 Estim Creat Clear Calc 79 Estimated GFR > 60 Glucose 142 H Calcium 8.3 L Discharge Plan Discharge Attending physician on discharge: Shweta Walton Discharging Clinician: Shweta Walton Anticipated Discharge Date/Time: 01/16/22 09:26 Patient Disposition: Home, Self-Care Activity: other - see discharge instructions Diet: other - see discharge instructions Wound Care Instructions: follow printed instructions Discharge Instructions: Remove the Scopolamine patch that was placed behind your ear in 72 hours or less. Wash your hands after touching. DISCHARGE INSTRUCTION SHEET FOR HERNIA, GALLBLADDER AND APPENDIX SURGERIES DR. WALTON PATIENT TO TAKE HOME 1. May shower in 24 hours, no soaking in bath x 2weeks
== END 2022-01-16 11:10 | disposition home or self-care (01) | DRG 339 ==
LOC: ANHED 18:01 → ANH3MED 19:55
PROVIDERS: Surgery; Admitting Provider Surgery; Emergency Provider Emergency Medicine; PCP Internal Medicine; Visit Provider Surgery
PROC: 0DTJ4ZZ Resection of Appendix, Percutaneous Endoscopic Approach (ICD-10-PCS; CPT 44970; principal; 2022-01-13 12:00)
DX: K35.32 Acute appendicitis with perforation, localized peritonitis, and gangrene, without abscess (principal); K91.89 Other postprocedural complications and disorders of digestive system; K56.7 Ileus, unspecified; E87.6 Hypokalemia
CPT/HCPCS: 36415; 74018; 74177; 80048; 80053; 81001; 83690; 85025; 85027; 88304; 96361; 96365; 96374; 96375; 96376; 99285; A9270; G0378; J0330; J1100; J1170; J1650; J2250; J2270; J2405; J2543; J2704; J3010; J7030; J7120; Q9967

== ENCOUNTER 2023-01-27 11:12 | Emergency (ER) | payer OTHER, SELFPAY ==
--- NOTE | 2023-01-27 11:33 | ED.URI ---
HPI - URI/Sore Throat General Chief Complaint: Upper Respiratory Infection Stated Complaint: sinus inf,headache Source: patient and RN notes reviewed History of Present Illness HPI Narrative: 42 yo M presents to urgent care with complaints of left sided facial congestion, pressure, and tenderness x 3 days. pt states he began having a left sided, frontal, MCKOY about 1 week ago and battles URIs chronically. Pt states he feels the facial pressure extending into his left ear and reports dizziness intermittently. Pt states he usually has to be treated for a sinus infection twice a year. Pt has been using nasal rinses and OTC allergy medicine without relief. Denies any sore throat, ear pain, chest pain, SOB, N/V/D. Related Data Home Medications Medication Instructions Recorded Confirmed Daily Multivitamin 1 tab-cap PO DAILY 09/22/19 01/27/23 cetirizine 10 mg tablet (Zyrtec) 10 mg PO DAILY 01/12/22 01/27/23 krill 1 cap PO DAILY 01/12/22 01/27/23 [id number] 300 mg-90 mg-24 mg-50 mg capsule Allergies Allergy/AdvReac Type Severity Reaction Status Date / Time No Known Allergies Allergy Verified 01/27/23 11:30 Review of Systems Review of Systems: Pertinent positives and pertinent negatives per HPI. [facility] Past Medical History Medical History (Updated 01/27/23 @ 11:41 by Eleonora Umanzor, PRIMARY CARE COORDINATOR) Elbow fracture, left Hernia Left inguinal Surgical History Surgical History (Updated 01/25/22 @ 09:59 by Deana Hilario) History of elbow surgery Left ORIF History of hernia surgery Left inguinal hernia repair History of laparoscopic appendectomy 01/12/2022 History of nasal septoplasty Family History Family History Father Chronic pain Mother Hypertension Social History Social History Smoking status: Never smoker Tobacco type: cigarettes Second hand tobacco smoke exposure: No Alcohol intake: never Substance use: never Living arrangements: with family Additional living arrangements comments: Spouse and kids Occupation/Education: occupation Gender identity (if verbalized by the patient): Male Sexual Orientation (if Verbalized by the Patient): Straight or Heterosexual Spiritual care concerns: No Comments At the time of my signature, I reviewed and agree with the nursing past medical, surgical, social, and family history. There is no relevant family history pertinent to the patient complaint. Exam Narrative: GENERAL: This is a well-nourished, well-developed patient, in no apparent distress. HEAD: normocephalic, atraumatic. EYES: Sclera clear/white. Vision is grossly intact. EARS: External ears normal, auditory canals clear and without drainage, TMs normal without perforation. Hearing grossly intact. NOSE: External nose normal with no obvious nasal discharge, nares without redness, no rhinorrhea. congestion. THROAT: Mucous membranes moist, posterior pharynx clear. NECK: Neck supple, non-tender without lymphadenopathy, masses or thyromegaly. CARDIOVASCULAR: Regular rate and rhythm without murmurs, gallops, or rubs. RESPIRATORY: Clear to auscultation. Breath sounds equal bilaterally. No wheezes, rales, or rhonchi. GASTROINTESTINAL: Abdomen soft, non-tender, nondistended. Bowel sounds are active. No hepato-splenomegaly, or palpable masses. No guarding. SKIN: warm, intact with no suspicious lesions or rash, good texture and turgor. NEURO: awake, alert, and oriented to person, place and time. There were no obvious focal neurologic abnormalities. Course Course Level of Care: Express Care Visit Vital Signs Vital signs: Vital Signs Temperature 97.3 F L 01/27/23 11:36 Pulse Rate 72 01/27/23 11:36 Respiratory Rate 16 01/27/23 11:36 Blood Pressure 134/78 01/27/23 11:36 Pulse Oximetry 100 01/27/23 11:36 Oxygen Delivery Room Air 01/27/23 11:36 Temper
[2023-01-27 11:36] VITALS: BP 134/78; PULSE 72; RESP 16; TEMP 36.3; O2SAT 100
== END 2023-01-27 11:48 | disposition home or self-care (01) ==
PROVIDERS: Emergency Provider Nurse Practitioner Family; PCP Family Medicine
DX: J01.00 Acute maxillary sinusitis, unspecified (principal)
CPT/HCPCS: 99213; G0463

== ENCOUNTER 2024-05-15 18:16 | Emergency (ER) | payer OTHER, SELFPAY ==
--- NOTE | 2024-05-15 18:23 | ED.URI ---
HPI - URI/Sore Throat General Chief Complaint: Upper Respiratory Infection Stated Complaint: Sore Throat Time Seen by Provider: 05/15/24 18:17 Source: patient Mode of arrival: ambulatory Limitations: no limitations History of Present Illness HPI Narrative: Reji is a 43-year-old male patient presenting to the clinic today with complaints of a sore throat x2 days. He reports his throat hurts almost as bad as it did when he had strep as a child. He states his glands are swollen and is having pain with swallowing. Denies any known fever but has had some chills. Just had COVID 12 days ago. Has some nasal congestion but no other symptoms MD elicited complaint: sore throat and nasal congestion Related Data Home Medications Medication Instructions Recorded Confirmed Daily Multivitamin 1 tab-cap PO DAILY 09/22/19 05/15/24 cetirizine 10 mg tablet (Zyrtec) 10 mg PO DAILY 01/12/22 05/15/24 krill 1 cap PO DAILY 01/12/22 05/15/24 [id number] 300 mg-90 mg-24 mg-50 mg capsule escitalopram oxalate 10 mg tablet 10 mg PO DAILY 05/15/24 05/15/24 fluticasone propionate 50 2 spray intranasal BID 05/15/24 05/15/24 mcg/actuation nasal spray,suspension Allergies Allergy/AdvReac Type Severity Reaction Status Date / Time No Known Allergies Allergy Verified 05/15/24 18:22 Review of Systems Review of Systems: Pertinent positives per HPI. Patient denies any fever, chills, rash, headache, visual changes, dizziness, cough, shortness of breath, chest pain, palpitations, nausea, vomiting, diarrhea, constipation, abdominal pain, or any urinary issues. [facility] Past Medical History Medical History Elbow fracture, left Hernia Left inguinal Surgical History Surgical History History of elbow surgery Left ORIF History of hernia surgery Left inguinal hernia repair History of laparoscopic appendectomy 01/12/2022 History of nasal septoplasty Family History Family History Father Chronic pain Mother Hypertension Social History Social History Smoking status: Never smoker Tobacco type: cigarettes Second hand tobacco smoke exposure: No Alcohol intake: never Substance use: never Living arrangements: with family Additional living arrangements comments: Spouse and kids Occupation/Education: occupation Gender identity (if verbalized by the patient): Male Sexual Orientation (if Verbalized by the Patient): Straight or Heterosexual Spiritual care concerns: No Comments At the time of my signature, I reviewed and agree with the nursing past medical, surgical, social, and family history. There is no relevant family history pertinent to the patient complaint. Exam Narrative: General: Well-developed, well nourished, in no apparent distress Head: Normocephalic, atraumatic Eyes: Pupils equally round and reactive to light bilaterally, EOM intact, sclera and conjunctive clear, no discharge, lids normal Ears: TMs intact and congested, ear canals clear, no drainage, grossly hearing normal. Nose: Nares patent, clear nasal discharge, no inflammation, no sinus tenderness. Mouth: Oral pharynx red with mild tonsillar enlargement without lesions or masses, good dentition, MMM. Neck: Supple, trachea midline, enlargement of anterior cervical nodes, no thyroid masses or goiter palpable. Cardio: Regular rate and rhythm, s1 and s2 normal, no murmur appreciated. Resp: Clear to auscultation bilaterally, no rhonchi, rales, wheezing or rubs Course Course Emergency Course: Portions of this record may have been created with voice recognition software. Level of Care: Express Care Visit Vital Signs Vital signs: Vital signs reviewed MDM - URI/Sore Throat MDM Narrati
[2024-05-15 18:27] VITALS: BP 137/78; PULSE 74; RESP 16; TEMP 36.9; O2SAT 100
[2024-05-15 18:36] LABS: EDSTREPNEGPOS1 Presumptive Negative
== END 2024-05-15 18:40 | disposition home or self-care (01) ==
PROVIDERS: Emergency Provider Nurse Practitioner Family; PCP Family Medicine
DX: J02.9 Acute pharyngitis, unspecified (principal); Z86.16 Personal history of COVID-19
CPT/HCPCS: 87081; 87880; 99213; G0463